=== PATIENT | female | born 1950 | race Caucasian/White ===

== ENCOUNTER 2018-01-22 19:46 | Emergency (ER) | payer MEDICARE, OTHER ==
[~2018-01-22] VITALS: Ht 162.6 cm; Wt 81.7 kg
[~2018-01-22 19:46] MED LIST: CALCIUM 600 +1 EAC1 PO; CARVEDILOL12.5 MG PO; CIPROFLOXACIN500 M1 PO; CYMBALTA60 MG PO; FISH OIL 1,2001 EAC4 PO; FLAGYL500 MG PO; LOTREL 5-20 MG1 EACH PO; OMEPRAZOLE 20 M20 M1 PO
[2018-01-22] MEDS ORDERED: LOTREL 5-20 MG1 EACH (20:01)
[2018-01-22] MEDS ORDERED: HYDROCHLOROTHIA25 M2 (20:01)
[2018-01-22] MEDS ORDERED: [UNRECOGNIZED DRUG - OTHER] (20:03)
[2018-01-22] MEDS ORDERED: HYDROCODONE-AP1 EAC6 PO (22:16)
[2018-01-22] MEDS ORDERED: ZANAFLEX4 MG PO (22:16)
[2018-01-22] MEDS ORDERED: MEDROLDOSEPACK PO (22:16)
[2018-01-22 23:01] VITALS: BP 110/51
== END 2018-01-22 23:03 | disposition home or self-care (01) ==
LOC: M.ERS 19:46
DX: M54.16 Radiculopathy, lumbar region (principal); I10 Essential (primary) hypertension; M19.90 Unspecified osteoarthritis, unspecified site; F32.9 Major depressive disorder, single episode, unspecified; K21.9 Gastro-esophageal reflux disease without esophagitis; Z88.6 Allergy status to analgesic agent; Z90.710 Acquired absence of both cervix and uterus; Z88.8 Allergy status to other drugs, medicaments and biological substances; Z88.5 Allergy status to narcotic agent

== ENCOUNTER → 2018-02-02 | Outpatient (CLI) | payer MEDICARE, OTHER ==
[~2018-02-02] MED LIST changes: +HYDROCHLOROTHIA25 M2; +HYDROCODONE-AP1 EAC6 PO; +LOTREL 5-20 MG1 EACH; +MEDROLDOSEPACK PO; +ZANAFLEX4 MG PO; +[UNRECOGNIZED DRUG - OTHER]
== END ==
LOC: M.MRI 02-01 16:30
DX: M51.26 Other intervertebral disc displacement, lumbar region (principal); M51.24 Other intervertebral disc displacement, thoracic region; M50.323 Other cervical disc degeneration at C6-C7 level; M50.221 Other cervical disc displacement at C4-C5 level; M48.04 Spinal stenosis, thoracic region; M48.02 Spinal stenosis, cervical region; M12.88 Other specific arthropathies, not elsewhere classified, other specified site; M47.12 Other spondylosis with myelopathy, cervical region; M54.31 Sciatica, right side

== ENCOUNTER → 2018-11-01 | Outpatient (CLI) | payer MEDICARE, OTHER | LOC: M.MRI 13:12 | DX: S83.242A Other tear of medial meniscus, current injury, left knee, initial encounter (principal); M17.12 Unilateral primary osteoarthritis, left knee; Z88.2 Allergy status to sulfonamides; Z88.8 Allergy status to other drugs, medicaments and biological substances; X58.XXXA Exposure to other specified factors, initial encounter; Y93.89 Activity, other specified; Y92.89 Other specified places as the place of occurrence of the external cause; Y99.8 Other external cause status ==

== ENCOUNTER → 2018-12-12 | Outpatient (CLI) | payer MEDICARE, OTHER | LOC: M.CT 14:38 | DX: N20.0 Calculus of kidney (principal); N28.89 Other specified disorders of kidney and ureter; J98.4 Other disorders of lung; K76.0 Fatty (change of) liver, not elsewhere classified; K57.30 Diverticulosis of large intestine without perforation or abscess without bleeding; R91.8 Other nonspecific abnormal finding of lung field; Z88.8 Allergy status to other drugs, medicaments and biological substances ==